=== PATIENT | female | born 1995 | race African-American/Black ===

== ENCOUNTER 2023-11-07 00:43 | Emergency (ER) | payer MEDICAID ==
[~2023-11-07] VITALS: Ht 167.6 cm; Wt 78.0 kg
[2023-11-07 01:20] VITALS: O2SAT 100
[2023-11-07] MEDS: ACETAMINOPHEN 325MG TABLET PO ONE (07:06)
[2023-11-07] MEDS ORDERED: BACITRACIN 14GM TUBE TOP ONE (07:45)
[2023-11-07] MEDS ORDERED: TOPUD PO (08:19)
[2023-11-07] MEDS ORDERED: BACITRACIN ZINC OINT UDPKT TOP ONE (09:00)
[2023-11-07 09:02] VITALS: BP 131/89; PULSE 89; RESP 18; TEMP 36.78072; O2SAT 100
== END 2023-11-07 09:03 | disposition home or self-care (01) ==
LOC: ER 00:43
DX: S30.810A Abrasion of lower back and pelvis, initial encounter (principal); J45.909 Unspecified asthma, uncomplicated; R51.9 Headache, unspecified; V89.2XXA Person injured in unspecified motor-vehicle accident, traffic, initial encounter; Y93.89 Activity, other specified; Y92.89 Other specified places as the place of occurrence of the external cause; Y99.8 Other external cause status
CPT/HCPCS: 99284